=== PATIENT | female | born 1955 | race Caucasian/White ===

== ENCOUNTER → 2018-12-15 08:48 | Outpatient (CLI) | payer OTHER, MEDICARE ==
[2014-07-31 08:07] VITALS: BMI 30.3
[~2018-12-15 08:48] MED LIST: ASPIRIN81 MG PO; PREMARIN0.625 MG PO; PREVACID15 MG PO; SYNTHROID25 MCG PO; TENORMIN25 MG PO; ZOCOR40 MG PO
== END ==
LOC: D.US 12-13 09:00
PROVIDERS: ATTEND Internal Medicine Gastroenterology
DX: R10.13 Epigastric pain (principal); R11.0 Nausea

== ENCOUNTER → 2019-01-18 07:05 | Outpatient (CLI) | payer OTHER, MEDICARE ==
[2014-07-31 08:07] VITALS: BMI 30.3
== END | disposition home or self-care (01) ==
LOC: D.OPS 07:05 → D.RAD 09:30
PROVIDERS: ATTEND Surgery
DX: K21.0 Gastro-esophageal reflux disease with esophagitis (principal)

== ENCOUNTER 2019-02-12 06:50 | Inpatient (IN) | payer OTHER, MEDICARE ==
[~2019-02-12] VITALS: Ht 149.9 cm; Wt 68.2 kg
[2019-02-12] VITALS (7 sets, daily range): BP systolic 112–127; BP diastolic 52–67; Ht 149.9 cm; Wt 68.2 kg
[~2019-02-12 06:50] MED LIST changes: +CARAFATE1 G PO; +HYTRIN10 MG PO; +METFORMIN HCL500 M1 PO; +NITROQUICK0.4 MG SL; +NORVASC5 MG PO; +PROTONIX40 MG PO; +ZETIA10 MG PO
[2019-02-12 07:24] LABS: HEMATOCRIT 46.5 % (36.0-48.0); HEMOGLOBIN 15.2 g/dL (12-16); MCH 30.9 pg (26.0-34.0); MCHC 32.7 g/dL (31.0-37.0); MCV 94.5 fL (80.0-100.0); RBC 4.92 10x6/uL (4.00-5.40); RDW 13.3 % (11.5-14.5); WBC 8.8 10x3/uL (4.8-10.8)
[2019-02-12 07:26] LABS: ANION GAP 12.8 mmol/L (8-16); CALCIUM 9.7 mg/dL (8.5-10.1); CARBON DIOXIDE 29.8 mmol/L (21.0-32.0); POTASSIUM - SERUM 4.6 mmol/L (3.5-5.1)
[2019-02-12] MEDS ORDERED: POTASSIUM CHLO10 ME1 PO (08:47)
--- NOTE | 2019-02-12 17:14 | NUR ---
1715 REPORT GIVEN TO ILDEFONSO
--- NOTE | 2019-02-12 17:48 | NUR ---
PATIENT ADMITTED TO ROOM 2233. ADMISSION COMPLETE. LAP SITES X 2 C/D/I. LAP SITES X 2 OOZING. 4X4 GAUZE APPLIED OVER TOP OF LAP SITES. O2 PLACED ON PATIENT AT 2L NC D/T DESAT TO 89% ON ROOM AIR. BROTHER IN ROOM WITH PATIENT. BURTON ALARM ON. WILL CONTINUE TO MONITOR.
--- NOTE | 2019-02-12 19:19 | NUR ---
IN BED WITH EYES CLOSED, APPEARS TO BE RESTING QUIELTY. ARROUSES TO VOICE. ABLE TO VOICE ALL NEEDS. IV TO LEFT HAND IS PATENT WITH LR INFUSING VIA ORDERS. O2 AT 2LPM VIA NC. NO S/S OF ANY ACUTE DISTRESS. DENIES ANY PAIN AT THIS TIME. WILL NOTE ANY CHANGE.
[2019-02-13 00:30] VITALS: BP 114/60
--- NOTE | 2019-02-13 01:51 | NUR ---
I have reviewed this patient and I concur with the Shift Assessment completed by the Licensed Practical Nurse today this shift.
[2019-02-13 05:25] VITALS: BP 107/53
[2019-02-13 05:32] LABS: ALBUMIN 2.9 g/dL (3.4-5.0); ANION GAP 10.5 mmol/L (8-16); BILIRUBIN - TOTAL 0.42 mg/dL (0.2-1.3); CALCIUM 8.5 mg/dL (8.5-10.1); CARBON DIOXIDE 27.7 mmol/L (21.0-32.0); CREATININE - SERUM 0.9 mg/dL (0.6-1.3); POTASSIUM - SERUM 4.2 mmol/L (3.5-5.1); PROTEIN - SERUM 5.9 g/dL (6.4-8.2)
[2019-02-13 05:34] LABS: BASOPHILS 0.2 % (0-2); EOSINOPHILS 0.4 % (0-7); HEMATOCRIT 40.6 % (36.0-48.0); HEMOGLOBIN 13.1 g/dL (12-16); IMMATURE GRANULOCYTES 0.2 % (0-5); LYMPHOCYTES 19.7 % (15-50); MCH 30.3 pg (26.0-34.0); MCHC 32.3 g/dL (31.0-37.0); MCV 93.8 fL (80.0-100.0); MEAN PLATELET VOLUME 10.3 fL (7.4-10.4); MONOCYTES 6.5 % (2-11); PLATELET COUNT 213 10x3/uL (130-400); RBC 4.33 10x6/uL (4.00-5.40); RDW 13.5 % (11.5-14.5); WBC 10.4 10x3/uL (4.8-10.8)
[2019-02-13 08:43] VITALS: BP 126/64
[2019-02-13] MEDS ORDERED: HYDROCODON-ACE1 EAC7 PO (09:29)
[2019-02-13 12:43] VITALS: BP 117/58
--- NOTE | 2019-02-13 13:55 | NUR ---
PT STATES THAT HER PAIN IS MANAGABLE AND STATES THQAT SHE BELIEVES SHE IS WELL ENOUGH AND WOULD LIKE TO DC HOME. PAGE PLACED TO DR ROJAS TO NOTIFY REQUESTED.
--- NOTE | 2019-02-13 14:00 | NUR ---
DR ROJAS RETURNED PAGE AND INFORMED OF PT STATUS. OK TO DISCHARGE HOME FOLLOWING INSTRUCTIONS IN DISCHARGE SUMMARY.
--- NOTE | 2019-02-13 16:33 | NUR ---
ALL DISCHARGE INSTRUCTIONS COVERED WITH PT AND PT FAMILY MEMBER. PT DENIES FURTHER QUESTIONS/CONCERNS/NEEDS AT THIS TIME. PIV REMOVED FROM LEFT HAND WITH CATHETER TIP INTACT. DRESSING APPLIED. ALL DISCHARGE PAPERS SIGNED.
--- NOTE | 2019-02-13 16:40 | NUR ---
PT TRANSPORTED FROM ROOM VIA WHEELCHAIR. PT DENIES FURTHER QUESTIONS/CONCERNS/NEEDS AT THIS TIME.
--- NOTE | 2019-02-16 15:08 | MORECARE ---
CASE MANAGEMENT DISCHARGE SUMMARY PATIENT: ADELAIDA CUEVA UNIT: [id number] ADM DATE: 02/12/19 AGE: 63 : 51 SEX: F [facility] AUTHOR: HILL ROSA PHYSICIAN: REFERRING PHYSICIAN: VALERIO ROJAS MD DATE OF SERVICE: 02/16/19 Discharge Plan Patient Name: ADELAIDA CUEVA Facility: [facility]:[place] : 1955 Planned Disposition: Anticipated Discharge Date: Discharge Date: 02/13/2019 Expected LOS: Initial Reviewer: [email or web address] Initial Review Date: 02/16/2019 Generated: 02/16/19 4:07 pm Patient Name: ADELAIDA CUEVA Page [id number] at 1508 All edits/amendments must be made on the electronic document DICTATION DATE: 02/16/19 1507 BULK SYSTEM OPERATOR: ARIA 02/16/19 1507 RPT#: [id number] DC DATE:02/13/19 STATUS: DIS IN [facility] [address] [place] [address] END OF REPORT
--- NOTE | 2019-02-16 15:19 | MORECARE ---
CASE MANAGEMENT DISCHARGE SUMMARY PATIENT: ADELAIDA CUEVA UNIT: [id number] ADM DATE: 02/12/19 AGE: 63 : 51 SEX: F ROOM/BED: D.[facility] AUTHOR: HILL ROSA PHYSICIAN: REFERRING PHYSICIAN: VALERIO ROJAS MD DATE OF SERVICE: 02/16/19 Discharge Plan Patient Name: ADELAIDA CUEVA Facility: [facility]:[place] : 1955 Planned Disposition: Anticipated Discharge Date: Discharge Date: 02/13/2019 Expected LOS: 0 Initial Reviewer: [email or web address] Initial Review Date: 02/16/2019 Generated: 02/16/19 4:19 pm Last DP export: 02/16/19 2:07 pm Patient Name: ADELAIDA CUEVA Page [id number] at 1519 All edits/amendments must be made on the electronic document DICTATION DATE: 02/16/19 1519 PEDIATRIC NURSE: ARIA 02/16/19 1519 RPT#: [id number] DC DATE:02/13/19 STATUS: DIS IN [facility] [address] [place] [address] END OF REPORT
== END 2019-02-13 16:40 | disposition home or self-care (01) | DRG 328 ==
LOC: D.OPS 06:50 → D.PAN 10:15 → D.MS 17:18 → D.OPS 17:19 → D.MS 17:19
PROVIDERS: Anesthesiology; ADMIT Surgery; ATTEND Surgery
PROC: 0BQT4ZZ Repair Diaphragm, Percutaneous Endoscopic Approach (ICD-10-PCS; principal; 2019-02-12 09:30)
PROC: 0DV44ZZ Restriction of Esophagogastric Junction, Percutaneous Endoscopic Approach (ICD-10-PCS; 2019-02-12 09:30)
DX: K44.9 Diaphragmatic hernia without obstruction or gangrene (principal); K21.9 Gastro-esophageal reflux disease without esophagitis; K22.70 Barrett's esophagus without dysplasia; M19.90 Unspecified osteoarthritis, unspecified site; E11.9 Type 2 diabetes mellitus without complications; I10 Essential (primary) hypertension; J44.9 Chronic obstructive pulmonary disease, unspecified; E66.3 Overweight; Z68.30 Body mass index [BMI] 30.0-30.9, adult